=== PATIENT | male | born 1965 | race Caucasian/White ===

== ENCOUNTER 2016-12-09 19:04 | Emergency (ER) | payer BC ==
[2016-12-09 19:23] VITALS: TEMP 96.9
[2016-12-09] MEDS ORDERED: CEPHALEXIN 500MG STARTER PACK 4 CAP BTL PO STA (19:53)
--- NOTE | 2016-12-09 20:03 | ED ---
General Adult HPI - General Chief complaint: Extremity Problem,Nontraumatic Stated complaint: leg injury Time Seen by Provider: 12/09/16 19:35 Source: patient, RN notes reviewed Mode of arrival: ambulatory Limitations: no limitations - History of Present Illness Initial comments: Chief complaint history of present illness a 51-year-old male with a chronic injury to his left lower leg. Patient reports he was cutting wood with a chain saw a piece of wood poked him in his left lower medial leg area. Over. At time became red and irritated he treated at home with Neosporin prolonged period of time. After several months he went to [facility] and was at that time placed on Augmentin which she finished a 10 day course 2 days ago. Since then has gotten a little redder. He is not tender its read but not hot. - Related Data Previous Rx's Medication Instructions Recorded Cephalexin [Keflex] 500 mg PO Q6HR #36 cap 12/09/16 Allergies Allergy/AdvReac Type Severity Reaction Status Date / Time No Known Allergies Allergy Verified 12/09/16 19:56 Review of Systems ROS Statement: Those systems with pertinent positive or pertinent negative responses have been documented in the HPI. Review of systems patient denies any headache chest pain shows breath GI/ problems. All systems otherwise reviewed. Past medical problems none. He's been treated as though he had a cellulitis with Augmentin to the leg. Denies any surgeries. Denies any ALLERGIES. Family history noncontributory. ROS Other: All systems not noted in ROS Statement are negative. Past Medical History Additional Past Medical History / Comment(s): cellulitis History of Any Multi-Drug Resistant Organisms: None Reported Past Surgical History: No Surgical Hx Reported Past Psychological History: No Psychological Hx Reported Smoking Status: Former smoker Past Alcohol Use History: None Reported Past Drug Use History: None Reported General Exam - General Exam Comments Initial Comments: General: The patient is awake and alert, in no distress, and does not appear acutely ill. Vital signs show temperature 96.9 pulse 109 respiratory rate 18 pulse ox 97% room air blood pressure 169/82. Elevated systolic discussed with the patient he will be given the name of family physician follow-up within the next 1-2 weeks. Also be advised to follow-up with dermatology for the leg problem he presents with. denying any chest pain, no shortness of breath no GI/ problems. Denies any neuro deficits. Musculoskeletal: Examination of the left leg finds neurovascular status is intact. The patient has a small less than 5 mm hole that this rarely or never closes. He gets this Goes away. Circumferentially around this area and approximate 12 cm area he has reddened skin appears on surface to be a cellulitis but is nontender and is not hot to touch and is not draining. He did say reviewed and approved somewhat with Augmentin. This surrounds the area where he had they would poke his leg. He did go to [facility] had an ultrasound done no evidence of any DVT in the area. Ultrasound to see if they can identify possibility of a retained foreign body that was not seen on plain x-ray at [facility]. Examination of the area has a small cordlike area that might be a retained splinter over these last several months. There is a small area of fluid collection next to it which she reports is unchanged. Possibility of skin reacting locally to a retained foreign body was discussed. At this time though the patient is going to be referred on to dermatology for further evaluation of the area in question and he will be placed on cephalexin. Limitations: no limitations Course Vital Signs 12/09/16 19:19 Temperature 96.9 F L Pulse Rate 109 H Respiratory 18 Rate Blood Pressure 169/82 O2 Sat by Pulse 97 Oximetry Medical Decision Making - Medical Decision Making Ultrasound was done to rule out possibility of urinary retained foreign body. Radiologist's impression is no evidence of retained foreign body. As read by Dr. Gallegos. 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 He'll be placed on cephalexin at this time Disposition Clinical Impression: Cellulitis of left leg without foot Disposition: HOME SELF-CARE Condition: Stable Instructions: Cellulitis (ED) Additional Instructions: Take cephalexin as directed follow up dermatology Prescriptions: Cephalexin [Keflex] 500 mg PO Q6HR #36 cap Time of Disposition: 21:25
--- NOTE | 2016-12-09 20:54 | US ---
EXAMINATION TYPE: US extremity nonvasc mass LT DATE OF EXAM: 12/09/2016 8:38 PM COMPARISON: NONE CLINICAL HISTORY: Examine area of wound for retained foreign body. Patient hit his left leg on a stic k about 4 months ago while cutting wood. He has a large area of redness with a palpable lump on the a nterior left cage. No pain TECHNOLOGIST IMPRESSION: At the are of the patient's palpable lump, there appears to be a dilated castañeda perficial vein. This area does have venous flow within and is compressible. No foreign object is iden tified. IMPRESSION: No discrete solid or cystic mass identified. No evidence of a foreign body.
[2016-12-09 21:46] VITALS: BP 141/69; PULSE 78; RESP 16
== END 2016-12-09 21:33 | disposition home or self-care (01) ==
LOC: EC 19:04
DX: L03.116 Cellulitis of left lower limb (principal); W29.3XXA Contact with powered garden and outdoor hand tools and machinery, initial encounter; Z87.891 Personal history of nicotine dependence
CPT/HCPCS: 99283